=== PATIENT | male | born 1960 | race Caucasian/White ===

== ENCOUNTER 2019-12-23 05:46 | Emergency (ER) | payer OTHER ==
[2019-12-23] MEDS ORDERED: MORPHINE 4 MG/ML SYR ONE (06:17)
--- NOTE | 2019-12-23 07:16 | ER ---
Nurse's Notes [facility] Name: Roberto Mercado Age: 59 yrs Sex: Male : 1960 Arrival Date: 12/23/2019 Time: 05:47 Bed 8 Private MD: Diagnosis: Sciatica, right side Presentation: 12/22 05:57 Chief complaint: Patient states: hx of chronic back and hip pain, reports being seen by sg PCP and prescribed multiple different medications for pain control and muscle relaxers, reports no relief from medications. Denies new injury, denies trauma. Coronavirus screen: Proceed with normal triage. Ebola Screen: Patient negative for fever greater than or equal to 101.5 degrees Fahrenheit, and additional compatible Ebola Virus Disease symptoms Patient denies exposure to infectious person. Patient denies travel to an Ebola-affected area in the 21 days before illness onset. No symptoms or risks identified at this time. Initial Sepsis Screen: Does the patient meet any 2 criteria? No. Patient's initial sepsis screen is negative. Does the patient have a suspected source of infection? No. Patient's initial sepsis screen is negative. Risk Assessment: Do you want to hurt yourself or someone else? Patient reports no desire to harm self or others. Onset of symptoms was December 23, 2019. Care prior to arrival: None. Transition of care: patient was not received from another setting of care. 05:57 Method Of Arrival: Wheelchair 05:57 Acuity: BRANDON 4 06:00 Ebola Screen: No symptoms or risks identified at this time. ea Triage Assessment: 06:01 General: Appears uncomfortable, Behavior is appropriate for age. Pain: Complains of ea pain in back, left lower back and right lower back. Neuro: Level of Consciousness is awake, alert, obeys commands, Oriented to person, place, time. Cardiovascular: Patient's skin is warm and dry. Respiratory: Airway is patent Respiratory effort is even, unlabored, Respiratory pattern is regular, symmetrical. Derm: Skin is pink, warm \T\ dry. Musculoskeletal: Circulation, motion, and sensation intact. Reports pain in back, left lower back and right lower back. Historical: - Allergies: 06:01 No Known Allergies; sg - PMHx: 06:01 Herniated Disc- Lumbar; sg - Immunization history:: Adult Immunizations up to date. - Social history:: Smoking status: Patient reports the use of cigarette tobacco products. Screenin:59 Abuse screen: Denies threats or abuse. Nutritional screening: No deficits noted. ea Tuberculosis screening: No symptoms or risk factors identified. Fall Risk Gait- Weak (10 pts.). Mental Status- Oriented to own ability (0 pts). Assessment: 06:01 Reassessment: see triage assessment. ea 06:55 Reassessment: Patient and/or family updated on plan of care and expected duration. Pain ea level reassessed. Patient is alert, oriented x 3, equal unlabored respirations, skin warm/dry/pink. Ultrasound at bedside. 07:15 General: Appears in no apparent distress. comfortable, Behavior is calm, cooperative. rb1 Pain: Complains of pain in right lower back and left lower back. Neuro: Level of Consciousness is awake, alert, obeys commands, Oriented to person, place, time, situation. Cardiovascular: Capillary refill < 3 seconds. Respiratory: Airway is patent Respiratory effort is even, unlabored, Respiratory pattern is regular, symmetrical. Derm: Skin is pink, warm \T\ dry. 07:30 Reassessment: Patient is alert, oriented x 3, equal unlabored respirations, skin aa5 warm/dry/pink. Vital Signs: 06:00 BP 152 / 73; Pulse 81; Resp 18; Temp 97.5; Pulse Ox 96% ; ea 06:48 BP 143 / 79; Pulse 81; Resp 18; Pulse Ox 97% on R/A; ea ED Course: 05:47 Patient arrived in ED. ds1 05:59 Mira Damon, RN is Primary Nurse. ea 06:00 Triage completed. sg 06:00 Patient has correct armband on for positive identification. Bed in low position. Call ea light in reach. Side rails up X 1. Pulse ox on. NIBP on. 06:00 Patient placed in an exam room, on a stretcher, on pulse oximetry. ea 06:09 Heather Capone FNP-C is PHCP. kb 06:09 Rodríguez Gutierrez MD is Attending Physician. kb 06:57 US Extremity Venous Unilateral Ltd In Process Unspecified. EDMS 07:30 No provider procedures requiring assistance completed. Patient did not have IV access aa5 during this emergency room visit. Administered Medications: 06:13 Drug: morphine 4 mg Route: IM; Site: right deltoid; ea 06:54 Follow up: Response: No adverse reaction; Pain is decreased; RASS: Alert and Calm (0) ea Outcome: 07:15 Discharge ordered by MD. head 07:30 Discharged to home via wheelchair, with significant other. aa5 07:30 Condition: improved 07:30 Discharge instructions given to patient, Instructed on discharge instructions, follow up and referral plans. Demonstrated understanding of instructions, follow-up care. 07:34 Patient left the ED. aa5 Signatures: Dispatcher [employer] EDMS Heather Capone, CRYPTOLOGICAL TECHNICIAN-C CRYPTOLOGICAL TECHNICIAN-Ckb Jan Woodard, RN RN sg Myriam Payan ds1 Susan Moreno RN RN aa5 Gisel Hagen, RN RN rb1 Mira Damon RN RN ea
--- NOTE | 2019-12-23 07:16 | EDPHYS ---
Physician Documentation [facility] Name: Roberto Mercado Age: 59 yrs Sex: Male : 1960 Arrival Date: 12/23/2019 Time: 05:47 Bed 8 Private MD: ED Physician Rodríguez Gutierrez HPI: 12/22 06:15 This 59 yrs old Male presents to ER via Wheelchair with complaints of Hip kb Pain, Back Pain. 06:16 The patient presents with pain that is chronic, with no known mechanism of injury. The kb symptoms are located in the right low back. Onset: The symptoms/episode began/occurred years ago. The pain radiates to the right leg. Associated signs and symptoms: Pertinent positives: none Pertinent negatives: incontinence, numbness, tingling, urinary retention, weakness. The problem was sustained from a chronic condition. Modifying factors: The patient symptoms are alleviated by nothing, the patient symptoms are aggravated by standing. Severity of symptoms: At their worst the symptoms were moderate, in the emergency department the symptoms are unchanged. The patient has experienced similar episodes in the past, chronically. The patient has been recently seen by a physician:. Pt states he has chronic right low back pain that flared up 10 days ago. Has been seen by PCP twice and two other ERs for this pain. Pt takes Soma and Hydrocodone at home for this, but it is not helping. States he came here to see if we could do something different. Has tried steroids that normally help, but this time did not. Had an MRI yesterday and should get results today. Pain is to right low back and radiates down right leg. States the pain radiates worse when standing. . Historical: - Allergies: 06:01 No Known Allergies; sg - PMHx: 06:01 Herniated Disc- Lumbar; sg - Immunization history:: Adult Immunizations up to date. - Social history:: Smoking status: Patient reports the use of cigarette tobacco products. ROS: 06:14 Constitutional: Negative for fever, chills, and weight loss, Cardiovascular: Negative kb for chest pain, palpitations, and edema, Respiratory: Negative for shortness of breath, cough, wheezing, and pleuritic chest pain, Abdomen/GI: Negative for abdominal pain, nausea, vomiting, diarrhea, and constipation, : Negative for injury, bleeding, discharge, and swelling, MS/Extremity: Negative for injury and deformity, Skin: Negative for injury, rash, and discoloration, Neuro: Negative for headache, weakness, numbness, tingling, and seizure. 06:14 Back: Positive for pain at rest, pain with movement, radiated pain, of the right low back. Exam: 06:14 Constitutional: This is a well developed, well nourished patient who is awake, alert, kb and in no acute distress. Head/Face: Normocephalic, atraumatic. Chest/axilla: Normal chest wall appearance and motion. Nontender with no deformity. No lesions are appreciated. Cardiovascular: Regular rate and rhythm with a normal S1 and S2. No gallops, murmurs, or rubs. Normal PMI, no JVD. No pulse deficits. Respiratory: Lungs have equal breath sounds bilaterally, clear to auscultation and percussion. No rales, rhonchi or wheezes noted. No increased work of breathing, no retractions or nasal flaring. Abdomen/GI: Soft, non-tender, with normal bowel sounds. No distension or tympany. No guarding or rebound. No evidence of tenderness throughout. Skin: Warm, dry with normal turgor. Normal color with no rashes, no lesions, and no evidence of cellulitis. MS/ Extremity: Pulses equal, no cyanosis. Neurovascular intact. Full, normal range of motion. Neuro: Awake and alert, GCS 15, oriented to person, place, time, and situation. Cranial nerves II-XII grossly intact. Motor strength 5/5 in all extremities. Sensory grossly intact. Cerebellar exam normal. Normal gait. 06:14 Back: pain, that is moderate, of the right low back, ROM is painful, normal spinal alignment noted, CVA tenderness, is absent, vertebral tenderness, is not appreciated. Vital Signs: 06:00 BP 152 / 73; Pulse 81; Resp 18; Temp 97.5; Pulse Ox 96% ; ea 06:48 BP 143 / 79; Pulse 81; Resp 18; Pulse Ox 97% on R/A; ea MDM: 06:10 Patient medically screened. kb 06:14 Data reviewed: vital signs, nurses notes. Data interpreted: Pulse oximetry: on room air kb is 96 %. Interpretation: normal. 06:21 ED course: Pt and I discussed imaging, I educated pt that the MRI is a better kb diagnostic tool than what we could do in the ER and that CT and x-ray are not indicated at this time. Pt has no new injury. Pt states he thinks it has to be something else, like a blood clot problem. Pt educated that the pain he describes and his history are not indicative of a blood clot. Pt insists we check for a clot. US ordered. . 07:15 Counseling: I had a detailed discussion with the patient and/or guardian regarding: the kb historical points, exam findings, and any diagnostic results supporting the discharge/admit diagnosis, radiology results, the need for outpatient follow up, a family practitioner, to return to the emergency department if symptoms worsen or persist or if there are any questions or concerns that arise at home. 12/22 06:10 Order name: US Extremity Venous Unilateral Ltd kb Administered Medications: 06:13 Drug: morphine 4 mg Route: IM; Site: right deltoid; ea 06:54 Follow up: Response: No adverse reaction; Pain is decreased; RASS: Alert and Calm (0) ea Disposition: 17:37 Co-signature as Attending Physician, Rodríguez Gutierrez MD I agree with the assessment and tw4 plan of care. Disposition: 12/23/19 07:15 Discharged to Home. Impression: Sciatica, right side. - Condition is Stable. - Discharge Instructions: Sciatica, [id number], Back Exercises, [id number]. - Medication Reconciliation Form, Thank You Letter, Antibiotic Education, Prescription Opioid Use form. - Follow up: Emergency Department; When: As needed; Reason: Worsening of condition. Follow up: Private Physician; When: 2 - 3 days; Reason: Recheck today's complaints, Continuance of care, Re-evaluation by your physician. Signatures: Dispatcher [employer] EDHeather Baldwin, HAILEYC PROGRAMMER ENGINEERING AND SCIENTIFIC-Jan Trent RN Susan Calderón RN RN aa5 Mira Damon RN RN ea Wadley, Terrence, MD MD tw4 Corrections: (The following items were deleted from the chart) 07:34 07:15 12/23/2019 07:15 Discharged to Home. Impression: Sciatica, right side. Condition aa5 is Stable. Forms are Medication Reconciliation Form, Thank You Letter, Antibiotic Education, Prescription Opioid Use. Follow up: Emergency Department; When: As needed; Reason: Worsening of condition. Follow up: Private Physician; When: 2 - 3 days; Reason: Recheck today's complaints, Continuance of care, Re-evaluation by your physician. kb
[2019-12-23 07:39] VITALS: TEMP 97.5
[2019-12-23 07:40] VITALS: BP 143/79; O2SAT 97
--- NOTE | 2019-12-23 07:49 | RAD REPORT ---
EXAM DESCRIPTION: US - Extremity Venous Uni Ltd - 12/23/2019 7:32 am CLINICAL HISTORY: PAINright leg pain and swelling COMPARISON: None. TECHNIQUE: Real-time sonographic evaluation of the right lower extremity deep venous systems was per formed. FINDINGS: Normal compressibility, flow augmentation, phasic flow and spontaneous flow are identified in the right lower extremity common femoral, superficial femoral, popliteal and posterior tibial vei ns. No intraluminal filling defects seen. IMPRESSION: No DVT in the right lower extremity.
== END 2019-12-23 07:34 | disposition home or self-care (01) ==
LOC: ER 05:46
DX: M54.41 Lumbago with sciatica, right side (principal)
CPT/HCPCS: 93971; 96372; 99283